=== PATIENT | male | born 1960 | race Caucasian/White ===

== ENCOUNTER 2017-08-22 09:55 | Observation (INO) | payer OTHER ==
[~2017-08-22] VITALS: Ht 177.8 cm; Wt 71.6 kg
[~2017-08-22 09:55] MED LIST: ALBU90OI INH; AMIT25 PO; AMIT50 PO; AMIT75 PO; ASPI81EC PO; CHOLESTEROL MED; CYCL10 PO; Cipro500 MG PO; DIAZ5; DICL75ER PO; ESCI10 PO; FENO145 PO; FENO160 PO; FISH OIL 1,0001 EAC1 PO; FISH1000 PO; GABA300 PO; GABA800 PO; HYDACE10B; HYDACE10B PO; HYDACE5325 PO; IBUP800 PO; LEVFLO500 PO; LIDO5TP TOP; METH5 PO; MULVITMIND PO; MULVITMINF; NAPR500 PO; OMEP20ER PO; OXYACE5T PO; PRED20 PO; PROCODE120 PO; Prednisone20 MG PO; SPACE CHAMBER1 EACH MC; SUCR1 PO
[2017-08-22 10:28] LABS: BASOPHILS ABSOLUTE AUTO 0.07 K/mm3 (0.00-0.23); BASOPHILS PERCENT AUTO 1 % (0-2); EOSINOPHILS ABSOLUTE AUTO 0.13 K/mm3 (0.00-0.68); EOSINOPHILS PERCENT AUTO 2 % (0-6); Hematocrit 42.9 % (37.0-53.0); Hemoglobin 14.3 g/dL (13.5-17.5); IMMATURE GRAN ABSOLUTE AUTO 0.02 K/mm3 (0.00-0.10); IMMATURE GRAN PERCENT AUTO 0 % (0-1); LYMPHOCYTES ABSOLUTE AUTO 2.54 K/mm3 (0.84-5.20); LYMPHOCYTES PERCENT AUTO 32 % (21-46); MONOCYTES ABSOLUTE AUTO 0.37 K/mm3 (0.16-1.47); MONOCYTES PERCENT AUTO 5 % (4-13); Mean Corpuscular HGB Conc 33.3 g/dL (31.5-36.5); Mean Corpuscular Volume 93 fL (80-100); Mean Platelet Volume 9.3 fL (9.1-12.4); NEUTROPHILS ABSOLUTE AUTO 4.83 K/mm3 (1.96-9.15); NEUTROPHILS PERCENT AUTO 61 % (41-73); Platelet Count 321 K/mm3 (150-400); RDW Coefficient Variation 13.9 % (11.7-14.2); RDW Standard Deviation 47.1 fL (35.1-46.3); Red Blood Cell Count 4.62 M/mm3 (4.30-5.90); White Blood Cell Count 7.96 K/mm3 (4.00-11.30)
[2017-08-22 10:47] LABS: Alanine Aminotransfer (ALT/SGP 21 U/L (12-78); Albumin, Blood 3.7 g/dL (3.4-5.0); Alk Phos 93 U/L (50-136); Anion Gap 10 mmol/L (6-16); Aspartate Aminotrans (AST/SGOT 18 U/L (12-37); Bilirubin, Total 0.6 mg/dL (0.1-1.0); Blood Urea Nitrogen 25 mg/dL (8-24); Bun/Creatinine Ratio 33.4 (12.0-20.0); CO2, Blood 23 mmol/L (21-32); Calcium, Blood 8.4 mg/dL (8.5-10.1); Chloride, Blood 110 mmol/L (98-108); Creatinine, Blood 0.75 mg/dL (0.60-1.20); Globulin, Blood 3.8 g/dL (2.2-4.0); Glomerular Filtration Rate >60 (60-); Glucose, Blood 180 mg/dL (70-99); Potassium, Blood 3.6 mmol/L (3.5-5.5); Sodium, Blood 143 mmol/L (136-145); Total Protein, Blood 7.5 g/dL (6.4-8.2); Troponin I <0.015 ng/mL (0.000-0.040)
[2017-08-22] MEDS ORDERED: BUSP10 PO (14:01)
[2017-08-22 15:17] LABS: U Amphetamine Screen Not Detected; U Barbituate Screen Not Detected; U Benzodiazapine Screen Not Detected; U Buprenorphine Screen Not Detected; U Cannabinoids Screen Not Detected; U Cocaine Screen Not Detected; U Methadone Screen Not Detected; U Methamphetamine Screen Not Detected; U Opiates Screen Not Detected; U Oxycodone Screen Not Detected; U Phencyclidine Screen Not Detected; U Propoxyphene Screen Not Detected
== END 2017-08-23 10:30 | disposition home or self-care (01) ==
LOC: ER 09:55 → PCU 09:56 → MEDS 11:43 → PCU 11:55 → MEDS 19:00 → ENPENDDIS 08-23 10:20 → MEDS 08-23 10:30
PROVIDERS: Emergency Medicine; Internal Medicine
DX: I20.0 Unstable angina (principal); Z79.01 Long term (current) use of anticoagulants; Z88.0 Allergy status to penicillin; Z88.8 Allergy status to other drugs, medicaments and biological substances; Z79.899 Other long term (current) drug therapy; F17.210 Nicotine dependence, cigarettes, uncomplicated; I10 Essential (primary) hypertension; F32.9 Major depressive disorder, single episode, unspecified; Z85.828 Personal history of other malignant neoplasm of skin
CPT/HCPCS: 36415; 71046; 80053; 83690; 84484; 85025; 93005; 93010; 96372; 96374; 99285; G0378; J1650; J3010

== ENCOUNTER 2018-04-21 13:18 | Emergency (ER) | payer OTHER ==
[~2018-04-21] VITALS: Ht 180.3 cm; Wt 77.1 kg
[~2018-04-21 13:18] MED LIST changes: +BUSP10 PO
[2018-04-21] MEDS ORDERED: KETO60I IM (14:10)
[2018-04-21] MEDS ORDERED: Robaxin-750750 MG PO (14:48)
[2018-04-21] MEDS ORDERED: HYDR1TAB94 PO (14:48)
[2018-04-21] MEDS ORDERED: Prednisone10 MG PO (14:48)
== END 2018-04-21 14:57 | disposition home or self-care (01) ==
LOC: ER 13:18
DX: M54.5 Low back pain (principal); Z88.0 Allergy status to penicillin; Z88.8 Allergy status to other drugs, medicaments and biological substances; Z79.899 Other long term (current) drug therapy; Z79.52 Long term (current) use of systemic steroids; F17.210 Nicotine dependence, cigarettes, uncomplicated
CPT/HCPCS: J1885

== ENCOUNTER 2018-04-28 12:28 | Inpatient (IN) | payer OTHER ==
[~2018-04-28] VITALS: Ht 177.8 cm; Wt 72.6 kg
[~2018-04-28 12:28] MED LIST changes: -AMIT25 PO; -GABA300 PO; +HYDR1TAB94 PO; +KETO60I IM; +Prednisone10 MG PO; +Robaxin-750750 MG PO
[2018-04-28 13:35] LABS: BASOPHILS ABSOLUTE AUTO 0.01 K/mm3 (0.00-0.23); BASOPHILS PERCENT AUTO 0 % (0-2); EOSINOPHILS ABSOLUTE AUTO 0.01 K/mm3 (0.00-0.68); EOSINOPHILS PERCENT AUTO 0 % (0-6); Hematocrit 41.1 % (37.0-53.0); Hemoglobin 13.8 g/dL (13.5-17.5); IMMATURE GRAN ABSOLUTE AUTO 0.04 K/mm3 (0.00-0.10); IMMATURE GRAN PERCENT AUTO 1 % (0-1); LYMPHOCYTES ABSOLUTE AUTO 1.62 K/mm3 (0.84-5.20); LYMPHOCYTES PERCENT AUTO 21 % (21-46); MONOCYTES ABSOLUTE AUTO 0.98 K/mm3 (0.16-1.47); MONOCYTES PERCENT AUTO 13 % (4-13); Mean Corpuscular HGB 30.7 pg (26.0-34.0); Mean Corpuscular HGB Conc 33.6 g/dL (31.5-36.5); Mean Corpuscular Volume 92 fL (80-100); Mean Platelet Volume 9.5 fL (9.1-12.4); NEUTROPHILS ABSOLUTE AUTO 5.16 K/mm3 (1.96-9.15); NEUTROPHILS PERCENT AUTO 66 % (41-73); Platelet Count 302 K/mm3 (150-400); RDW Coefficient Variation 13.6 % (11.7-14.2); RDW Standard Deviation 46.4 fL (35.1-46.3); Red Blood Cell Count 4.49 M/mm3 (4.30-5.90); White Blood Cell Count 7.82 K/mm3 (4.00-11.30)
[2018-04-28 14:06] LABS: Troponin I <0.015 ng/mL (0.000-0.040)
[2018-04-28 14:09] LABS: Alanine Aminotransfer (ALT/SGP 36 U/L (12-78); Albumin/Globulin Ratio 0.6 (0.8-1.8); Alk Phos 83 U/L (50-136); Anion Gap 11 mmol/L (6-16); Aspartate Aminotrans (AST/SGOT 33 U/L (12-37); Bilirubin, Total 0.8 mg/dL (0.1-1.0); Blood Urea Nitrogen 15 mg/dL (8-24); Bun/Creatinine Ratio 21.4 (12.0-20.0); CO2, Blood 25 mmol/L (21-32); Calcium, Blood 8.5 mg/dL (8.5-10.1); Chloride, Blood 100 mmol/L (98-108); Globulin, Blood 5.1 g/dL (2.2-4.0); Glomerular Filtration Rate >60 (60-); Glucose, Blood 100 mg/dL (70-99); Potassium, Blood 3.2 mmol/L (3.5-5.5); Sodium, Blood 136 mmol/L (136-145); Total Protein, Blood 8.1 g/dL (6.4-8.2)
[2018-04-28] MEDS ORDERED: **INCOMPLETE MED REC (16:21)
[2018-04-28] MEDS ORDERED: ALBU90OI61 INH (16:57)
[2018-04-28] MEDS ORDERED: Amitriptyline100 MG PO (16:58)
[2018-04-28] MEDS ORDERED: Cyclobenzaprine5 MG PO (17:01)
[2018-04-28] MEDS ORDERED: GABA300 PO (17:02)
[2018-04-28] MEDS ORDERED: Aspirin EC81 MG PO (17:07)
[2018-04-28] MEDS ORDERED: PRED10 PO (17:13)
[2018-04-28] MEDS ORDERED: Lovastatin20 MG PO (17:22)
[2018-04-28] MEDS ORDERED: Robaxin750 MG PO (17:25)
[2018-04-28] MEDS ORDERED: TIOT18 INH (17:28)
[2018-04-28] MEDS ORDERED: LIDOCAINE HCL30 ML TOP (17:29)
[2018-04-28] MEDS ORDERED: BUSP5 PO (23:59)
--- NOTE | 2018-04-29 04:34 | NUR ---
T/F AND SUMMARY: REPORT RECIEVED FROM ELVIRA ALMEIDA, TRANSIT MIXER OPERATOR AND PT T/F TO ROOM 329 AT 2100. PT A/OX4, AMBULATORY AND ORIENTED TO ROOM/CALL SYSTEM. HE GETS SLIGHTLY SOB W/EXERTION BUT WAS ABLE TO T/F SELF TO BED W/O DIFFICULTY AND HAS SINCE WALKED TO THE BATHROOM INDEPENDENTLY. PT OCCASIONALLY HAS DRY HACKING PASSENGER SERVICE MANAGER COUGH AND IS ON 2L O2 W/TIGHTNESS AND WHEEZES HEARD TO BILAT MID AND LOWER LOBES. PT DOESN'T WEAR HOME O2. RT CX'ING AND PROVIDING BX MEDS. HE HAD FLU VACCINE PRIOR TO ADMISSION AND IV ABX'S IN ER. HE REMAINS NSR AT 80'S BPM PER TELEMETRY. SCD'S INTACT. NO ACUTE CHANGES, VSS/AFEBRILE AND HAS DENIED PAIN/COMPLAINTS THIS SHIFT. PT LIVES AND WORKS AT THE [facility] [facility] AND WILL RETURN THERE UPON D/C. WILL MONITOR AND REPORT TO DAY RN.
[2018-04-29 05:47] LABS: Anion Gap 10 mmol/L (6-16); Blood Urea Nitrogen 13 mg/dL (8-24); Bun/Creatinine Ratio 22.7 (12.0-20.0); CO2, Blood 24 mmol/L (21-32); Calcium, Blood 7.8 mg/dL (8.5-10.1); Chloride, Blood 103 mmol/L (98-108); Creatinine, Blood 0.57 mg/dL (0.60-1.20); Glomerular Filtration Rate >60 (60-); Glucose, Blood 86 mg/dL (70-99); Potassium, Blood 3.4 mmol/L (3.5-5.5); Sodium, Blood 137 mmol/L (136-145)
--- NOTE | 2018-04-29 19:00 | NUR ---
NO NOTEABLE CHANGES THIS SHIFT
--- NOTE | 2018-04-30 06:32 | NUR ---
SHIFT SUMMARY: NO ACUTE CHANGES TONIGHT. PT IS A&O, INDEPEDENT IN . TELE IN PLACE; NSR @ 87 BPM. LS TIGHT + WHEEZE T/O, ON ROOM AIR, PT REPORTS DRY COUGH. PT DENIES PAIN, DENIES SOB, OR DENIES ANY DISCOMFORT. WILL CONT TO MONITOR AND PROVIDE CARE UNTIL PRESUMED BY ONCOMING RN.
--- NOTE | 2018-04-30 19:04 | NUR ---
PT. SITTING IN IN BED WATCHING TV. DENIES NEED OF ANUTHING AT THE TIME. PT. STILL NOT MOVING A LOT OF AIR IN HIS LUNGS, SOME WHEEZES IN UPPER LOBES. PT. STARTED BACK ON HOME MEDS.
[2018-05-01 05:40] LABS: Hematocrit 36.3 % (37.0-53.0); Hemoglobin 11.9 g/dL (13.5-17.5); Mean Corpuscular HGB 30.5 pg (26.0-34.0); Mean Corpuscular HGB Conc 32.8 g/dL (31.5-36.5); Mean Corpuscular Volume 93 fL (80-100); Mean Platelet Volume 8.5 fL (9.1-12.4); NRBC ABSOLUTE 0.02 K/mm3 (0.00-0.02); NRBC Auto 0.1 /100 WBC (0.0-0.2); Platelet Count 526 K/mm3 (150-400); RDW Coefficient Variation 13.7 % (11.7-14.2); White Blood Cell Count 17.78 K/mm3 (4.00-11.30)
[2018-05-01 05:59] LABS: Albumin, Blood 2.6 g/dL (3.4-5.0); Anion Gap 9 mmol/L (6-16); Blood Urea Nitrogen 18 mg/dL (8-24); Bun/Creatinine Ratio 30.3 (12.0-20.0); CO2, Blood 26 mmol/L (21-32); Calcium, Blood 8.6 mg/dL (8.5-10.1); Chloride, Blood 105 mmol/L (98-108); Creatinine, Blood 0.59 mg/dL (0.60-1.20); Glomerular Filtration Rate >60 (60-); Glucose, Blood 198 mg/dL (70-99); Phosphorus, Blood 2.8 mg/dL (2.5-4.9); Potassium, Blood 3.9 mmol/L (3.5-5.5); Sodium, Blood 140 mmol/L (136-145)
--- NOTE | 2018-05-01 07:31 | NUR ---
SHIFT SUMMARY: NO ACUTE CHANGES TO REPORT TONIGHT. PT IS A&O X 4, INDEPENDENT IN RM. TELE IN PLACE; NSR @ 87 BPM. LS TIGHT WHEEZE T/O. ON ROOM AIR PER DR MORRIS ORDERS. PT IS NOW ON REGULAR HOME MEDICATION SCHEDULE TONIGHT. IV ANTIBIOTICS AND IV SOLU MEDROL PER EMAR. WILL CONT TO MONITOR AND PROVIDE CARE UNTIL PRESUMED BY MELVA OSHEA.
--- NOTE | 2018-05-01 17:46 | NUR ---
SHIFT SUMMARY PT HAS HAD NO COMPLAINTS THIS SHIFT. PT ON ROOM AIR THIS SHIFT. PT INDEPENDENT IN THE ROOM WITH NO C/O SHORTNESS OF BREATH. NO ACUTE CHANGES THIS SHIFT. PLANS FOR PT TO DISCHARGE TOMORROW. NO REQUESTS AT THIS TIME. CALL LIGHT IN REACH. WILL CONTINUE TO MONITOR AND REPORT TO ONCOMING RN.
[2018-05-02 05:23] LABS: BASOPHILS ABSOLUTE AUTO 0.02 K/mm3 (0.00-0.23); BASOPHILS PERCENT AUTO 0 % (0-2); EOSINOPHILS PERCENT AUTO 0 % (0-6); Hematocrit 35.8 % (37.0-53.0); Hemoglobin 11.7 g/dL (13.5-17.5); IMMATURE GRAN ABSOLUTE AUTO 0.39 K/mm3 (0.00-0.10); IMMATURE GRAN PERCENT AUTO 3 % (0-1); LYMPHOCYTES ABSOLUTE AUTO 3.28 K/mm3 (0.84-5.20); LYMPHOCYTES PERCENT AUTO 24 % (21-46); MONOCYTES ABSOLUTE AUTO 1.12 K/mm3 (0.16-1.47); MONOCYTES PERCENT AUTO 8 % (4-13); Mean Corpuscular HGB 30.6 pg (26.0-34.0); Mean Corpuscular HGB Conc 32.7 g/dL (31.5-36.5); Mean Corpuscular Volume 94 fL (80-100); Mean Platelet Volume 8.3 fL (9.1-12.4); NEUTROPHILS ABSOLUTE AUTO 8.67 K/mm3 (1.96-9.15); NEUTROPHILS PERCENT AUTO 64 % (41-73); Platelet Count 488 K/mm3 (150-400); RDW Coefficient Variation 14.1 % (11.7-14.2); RDW Standard Deviation 48.6 fL (35.1-46.3); Red Blood Cell Count 3.82 M/mm3 (4.30-5.90); White Blood Cell Count 13.48 K/mm3 (4.00-11.30)
--- NOTE | 2018-05-02 07:07 | NUR ---
SHIFT SUMMARY: NO ACUTE CHANGES TO REPORT FOR THIS SHIFT. LS TIGHT WHEEZE T/O. ADMINISTERED IV ANTIBIOTICS AND SOLU-MEDROL PER ORDERS. PT IS TO D/C TODAY. PT IS AWARE OF PENDING D/C AND REPORTS FEELING "READY AND EXCITED" TO GO HOME. WILL CONT TO MONITOR AND PROVIDE CARE UNTIL PRESUMED BY ONCOMING RN.
[2018-05-02] MEDS ORDERED: AZIT500 PO (11:40)
[2018-05-02] MEDS ORDERED: ALBU3IS INH (11:41)
[2018-05-02] MEDS ORDERED: DULERA 100 MCG/13 GM INH (11:42)
[2018-05-02] MEDS ORDERED: CEFU500T30 PO (11:42)
--- NOTE | 2018-05-02 13:20 | NUR ---
DISCHARGE PT DISCHARGED TO HOME. THIS RN EXPLAINED DISCHARGE INSTRUCTIONS AND MEDICATIONS TO PT AND HE REPORTS HE UNDERSTANDS. IV REMOVED WITHOUT DIFFICULTY. PT' NEBULIZER MACHINE TO BE SENT TO [facility] PER JUAN, PROMOTIONAL MODEL. THIS RN WALKED WITH PT TO [employer]. PT'S BELONGINGS WITH PT.
== END 2018-05-02 13:43 | disposition home or self-care (01) | DRG 193 ==
LOC: ER 12:28 → ERHOLD 15:26 → MEDS 21:00 → ENPENDDIS 05-02 11:29 → MEDS 05-02 13:43
PROVIDERS: Emergency Medicine; Internal Medicine; ADMIT Internal Medicine
DX: J18.9 Pneumonia, unspecified organism (principal); J96.01 Acute respiratory failure with hypoxia; J44.1 Chronic obstructive pulmonary disease with (acute) exacerbation; J44.0 Chronic obstructive pulmonary disease with (acute) lower respiratory infection; E78.5 Hyperlipidemia, unspecified; F41.9 Anxiety disorder, unspecified; F32.9 Major depressive disorder, single episode, unspecified; Z85.828 Personal history of other malignant neoplasm of skin; Z66 Do not resuscitate; F17.210 Nicotine dependence, cigarettes, uncomplicated; E87.6 Hypokalemia; I10 Essential (primary) hypertension
CPT/HCPCS: 36415; 71046; 80048; 80053; 80069; 83605; 83880; 84484; 85025; 85027; 87040; 93005; 93010; 94640; 94760; 96361; 96365; 96372-59; 96375; 99285-25; J0456; J0696; J1650; J2405; J2930; J7030; J7050

== ENCOUNTER 2020-03-10 15:38 | Emergency (ER) | payer OTHER ==
[~2020-03-10] VITALS: Ht 177.8 cm; Wt 70.3 kg
[~2020-03-10 15:38] MED LIST changes: +**INCOMPLETE MED REC; +ALBU3IS INH; +ALBU90OI61 INH; +AZIT500 PO; +Amitriptyline100 MG PO; +Aspirin EC81 MG PO; +BUSP5 PO; +CEFU500T30 PO; +Cyclobenzaprine5 MG PO; +DULERA 100 MCG/13 GM INH; +GABA300 PO; +LIDOCAINE HCL30 ML TOP; +Lovastatin20 MG PO; +PRED10 PO; +Robaxin750 MG PO; +TIOT18 INH
[2020-03-10] MEDS ORDERED: IBUP400 PO (17:04)
[2020-03-10] MEDS ORDERED: Cephalexin500 MG PO (17:04)
[2020-03-10] MEDS ORDERED: HYDR1TAB94 PO (17:04)
== END 2020-03-10 17:24 | disposition home or self-care (01) ==
LOC: ER 15:38
DX: S60.322A Blister (nonthermal) of left thumb, initial encounter (principal); L03.012 Cellulitis of left finger; E78.5 Hyperlipidemia, unspecified; I10 Essential (primary) hypertension; F17.200 Nicotine dependence, unspecified, uncomplicated; Z79.82 Long term (current) use of aspirin; Z79.52 Long term (current) use of systemic steroids; Z88.0 Allergy status to penicillin; Z88.8 Allergy status to other drugs, medicaments and biological substances; Z79.899 Other long term (current) drug therapy; X58.XXXA Exposure to other specified factors, initial encounter
CPT/HCPCS: 11010; 99283-25; A9270

== ENCOUNTER 2020-06-08 07:51 | Emergency (ER) | payer OTHER ==
[~2020-06-08] VITALS: Ht 180.3 cm; Wt 72.6 kg
== END 2020-06-08 09:00 | disposition home or self-care (01) ==
LOC: ER 07:51
DX: S01.111A Laceration without foreign body of right eyelid and periocular area, initial encounter (principal); Z79.899 Other long term (current) drug therapy; Z79.82 Long term (current) use of aspirin; Z88.8 Allergy status to other drugs, medicaments and biological substances; Z88.0 Allergy status to penicillin; Z88.5 Allergy status to narcotic agent; Y08.89XA Assault by other specified means, initial encounter
CPT/HCPCS: 12013; 99284-25

== ENCOUNTER 2024-06-02 10:17 | Day surgery (SDC) | payer OTHER ==
[2024-06-02] VITALS (9 sets, daily range): BP systolic 131–162; BP diastolic 82–100
[~2024-06-02] VITALS: Ht 175.3 cm; Wt 64.9 kg
[~2024-06-02 10:17] MED LIST changes: +AMLO5 PO; +Cephalexin500 MG PO; +Crestor40 MG PO; +HYDCHL25 PO; +IBUP400 PO; +LISI20 PO; +Lactated Ringer's 1,000 ML IV SCH
--- NOTE | 2024-06-02 10:30 | NUR ---
History, Chart, Medications and Allergies reviewed before start of procedure. Patient confirms NPO status and agrees with scheduled surgery. Reports taking all of colon prep with "beige" results. States last BM clear. Patient States Post-Procedure ride home has been arranged with Asad, roommate. Patient agrees not to drive 24 hours post-sedation.
--- NOTE | 2024-06-02 10:45 | NUR ---
SPOKE TO DR SMITH ABOUT THREE LEAD EKG RESULTS AND NOTED HTN. NO NEW ORDERS.
[2024-06-02] MEDS ORDERED: propofoL 20 ML IV ONE (11:12)
[2024-06-02] MEDS ORDERED: Midazolam HCl 1MG / ML 2ML Vial ONE (11:12)
--- NOTE | 2024-06-02 11:17 | NUR ---
06/02/24 1117 [address] Shahid CONFIRMED AND REVIEWED H&P, MEDCICATIONS, ALLERGIES, MEDICAL HISTORY, RESPIRATORY HISTORY, VITAL SIGNS, 3-LEAD EKG, CONSENTS, AND PHYSICIAN ORDERS. PATIENT CONFIRMS NPO STATUS AND AGREES WITH SCHEDULED PROCEDURE. MONITOR INTACT WITH CONTINUOUS PULSE OXIMETRY, CAPNOGRAPHY, 3-LEAD EKG, INTERMITTENT BP. SUPPLEMENTAL O2 TO BE TITRATED THROUGHOUT PROCEDURE TO MAINTAIN O2 SATURATION ABOVE 90%. PATIENT DETERMINED TO BE ASA APPROPRIATE FOR PROPOFOL SEDATION PRIOR TO START OF PROCEDURE BY DR. SMITH.
--- NOTE | 2024-06-02 11:46 | NUR ---
Patient up to Ambulate independently. Gait steady. Discharge instructions reviewed with patient. Patient verbalizes understanding. Copy given to patient to take home. Discharged via wheelchair to private car for ride home. PT D/C W/ INCOMPLETE PROCEDURE D/T POOR CLEAN OUT. PT SCHEDULE FOR NON-STRESS [facility]ORROW [facility] THEN TO F/U W/DR. SMITH ON NEXT STEPS FOR COLONOSCOPY
== END 2024-06-02 11:47 | disposition home or self-care (01) ==
LOC: ORSCMMR 10:17 → ORD 11:00 → ORSCMMR 11:47
PROVIDERS: Internal Medicine Gastroenterology
PROC: 0DBN8ZX Excision of Sigmoid Colon, Via Natural or Artificial Opening Endoscopic, Diagnostic (ICD-10-PCS; principal; 2024-06-02 11:00)
DX: Z12.11 Encounter for screening for malignant neoplasm of colon (principal); K63.5 Polyp of colon; I25.10 Atherosclerotic heart disease of native coronary artery without angina pectoris; I25.2 Old myocardial infarction; I10 Essential (primary) hypertension; Z79.899 Other long term (current) drug therapy; F17.210 Nicotine dependence, cigarettes, uncomplicated
CPT/HCPCS: 88305; J2250; J2704; J7120